=== PATIENT | female | born 1955 | race Caucasian/White ===

== ENCOUNTER 2016-06-19 11:02 | Emergency (ER) | payer MEDICAID ==
[2016-06-19 11:15] VITALS: BP 157/89
--- NOTE | 2016-06-19 12:00 | UC ---
Throat Pain/Nasal Terry HPI - HPI Summary HPI Summary: Increasing burning pain on tip of tongue, roof of mouth, and behind lower teeth starting about 5 days ago. Pt has been without health insurance/health care since 5 months ago, also has not had her meds refilled in that time. Denies recent steroids or abx. - History of Current Complaint Chief Complaint: UCDentalProblem Stated Complaint: THROAT COMPLAINT Time Seen by Provider: 06/19/16 11:34 Hx Obtained From: Patient ?: No Onset/Duration: Gradual Onset, Lasting Days Severity: Moderate Cough: None Associated Signs & Symptoms: Negative: FB Sensation, Drooling, Sinus Discomfort , Nasal Discharge, Fever - Allergies/Home Medications Allergies/Adverse Reactions: Allergies Allergy/AdvReac Type Severity Reaction Status Date / Time Morphine Allergy Itching Verified 06/19/16 11:16 Home Medications: Home Medications Acetaminophen [Tylenol 8 Hour] 1,000 mg PO BEDTIME PRN 06/19/16 [History Confirmed 06/19/16] traMADol TAB* [Ultram*] 50 mg PO Q6HR PRN 06/19/16 [History Confirmed 06/19/16] PMH/Surg Hx/FS Hx/Imm Hx Cardiovascular History Of: Reports: Hypertension - not on meds Psychological History Of: Reports: Depression - Surgical History Surgical History: Yes Surgery Procedure, Year, and Place: X2. BLADDER REPAIR. Rectocele. GB - Family History Known Family History: Positive: Cardiac Disease, Diabetes - Social History Occupation: Unemployed Alcohol Use: None Substance Use Type: None Smoking Status (MU): Never Smoked Tobacco Have You Smoked in the Last Year: No Review of Systems Constitutional: Negative Skin: Negative Eyes: Negative ENT: Other - tongue pain Respiratory: Negative Cardiovascular: Negative Gastrointestinal: Negative Genitourinary: Negative Motor: Negative Neurovascular: Negative Musculoskeletal: Negative Neurological: Negative Psychological: Negative All Other Systems Reviewed And Are Negative: Yes Physical Exam Triage Information Reviewed: Yes Appearance: Well-Appearing, Obese Vital Signs: Initial Vital Signs Temp 96.3 F 06/19/16 11:10 Pulse 83 06/19/16 11:10 Resp 22 06/19/16 11:10 BP 157/89 06/19/16 11:10 Pulse Ox 98 06/19/16 11:10 Vital Signs Reviewed: Yes Eye Exam: Normal Eyes: Positive: Conjunctiva Clear ENT: Positive: Hearing grossly normal, Pharynx normal, TMs normal, Other: - inflamed papillae on tongue, red smooth area on tip of tongue. Negative: Pharyngeal erythema Dental Exam: Normal Neck exam: Normal Neck: Positive: Supple, Nontender, No Lymphadenopathy Respiratory Exam: Normal Respiratory: Positive: Chest non-tender, Lungs clear, Normal breath sounds, No respiratory distress, No accessory muscle use Cardiovascular Exam: Normal Cardiovascular: Positive: RRR, No Murmur Musculoskeletal Exam: Normal Neurological Exam: Normal Psychological Exam: Normal Skin Exam: Normal Throat Pain/Nasal Course/Dx - Differential Dx/Diagnosis Provider Diagnoses: glossitis Discharge - Discharge Plan Condition: Stable Disposition: HOME Prescriptions: Lidocaine 2% VISCOUS* 100 ml TOPICAL Q3HR PRN #1 btl PRN Reason: pain Referrals: Jamil Jung MD [Primary Care Provider] - 5 Days Additional Instructions: As we discussed, the burning pain in your mouth is probably from a vitamin deficiency (most commonly Vitamin B12 and Folate). This is something you will need to investigate with your primary care provider -- you will need some blood work at minimum. You do not have signs of viral, fungal, or bacterial infection today. Start a daily multivitamin, make an appointment with anyone in Dr. Jung's office for next week, and please return here or to the emergency department if you have any fever or sudden worsening in the meantime.
== END 2016-06-19 11:59 | disposition home or self-care (01) ==
LOC: UCEAST 11:02
DX: K14.0 Glossitis (principal); Z88.5 Allergy status to narcotic agent; E66.9 Obesity, unspecified
CPT/HCPCS: 99212; G0463

== ENCOUNTER 2017-10-24 10:50 | Emergency (ER) | payer OTHER ==
[2017-10-24] MEDS ORDERED: Aspirin 81 mg CHEW TAB* 81 MG TAB.CHEW PO ONE (11:24)
[2017-10-24] MEDS ORDERED: Nitroglycerin 2% OINT* 1 GM PAK ONE (11:35)
--- NOTE | 2017-10-24 11:37 | ED ---
HPI Chest Pain - HPI Summary HPI Summary: This patient is a 61 year old F presenting to ED with a chief complaint of left upper CP since 0600 this morning. The pain woke her from sleep and resolved after 2 hours[address] driving to [facility] to get her bloodwork done, the pain started up again. The CC is described as intermittent, radiating into her L jaw and back and as heavy and tight. During the onset of pain she reports it felt like she pulled a muscle and it hurt like hell. The patient rates the pain 6/10 in severity currently and a 10/10 at its worst. Symptoms aggravated by nothing. Symptoms alleviated by nothing. Patient reports slight LAINEZ and nausea. Patient denies dizziness and leg pain. She reports she has not had any prior episodes similar to this. No hx of blood clot. Current vitals include 75 BPM, 95 O2 sat, and BP 132/96. Home Medications Medication Instructions Recorded Confirmed Type Bupropion XL* [Wellbutrin XL *] 150 mg PO DAILY 10/24/17 10/24/17 History Hydroxychloroquine TAB* [Plaquenil 200 mg PO BID 10/24/17 10/24/17 History TAB*] Methylphenidate TAB* [Ritalin TAB*] 5 mg PO BID MDD 10 mg 10/24/17 10/24/17 History Phentermine HCl 15 mg PO BID MDD 30 mg 10/24/17 10/24/17 History Topiramate TAB(*) [Topamax 25 MG 25 mg PO BID 10/24/17 10/24/17 History tab] Triamcinolone 0.5% CREAM(NF) 1 applic TOPICAL BID PRN 10/24/17 10/24/17 History [Triamcinolone 0.5% CREAM*] amLODIPine TAB* [Norvasc 5 mg TAB*] 5 mg PO DAILY 10/24/17 10/24/17 History oxyCODONE/Acetamin 10/325(NF) 1 tab PO Q8HR PRN 10/24/17 10/24/17 History [Percocet 10/325 (NF)] rOPINIRole TAB* [Requip TAB*] 1 mg PO BID 10/24/17 10/24/17 History - History of Current Complaint Chief Complaint: EDChestPainROMI Time Seen by Provider: 10/24/17 11:09 Hx Obtained From: Patient Onset/Duration: Started Hours Ago - 0600 this morning, Still Present Timing: Constant, Lasting Hours - 0600 this morning Initial Severity: Moderate Current Severity: Moderate Pain Intensity: 6 Pain Scale Used: 0-10 Numeric - 10/10 at its worst Chest Pain Location: Discrete at: - left upper CP Chest Pain Radiates: Yes Chest Pain Radiates To:: Back, Jaw - Left Character: Heaviness, Tightness Aggravating Factor(s): Nothing Alleviating Factor(s): Nothing Associated Signs and Symptoms: Positive: Other: - Patient reports slight LAINEZ and nausea. Patient denies dizziness and leg pain. - Allergy/Home Medications Allergies/Adverse Reactions: Allergies Allergy/AdvReac Type Severity Reaction Status Date / Time gabapentin Allergy Unknown Verified 10/24/17 10:57 Reaction Details morphine Allergy Itching Verified 10/24/17 11:38 Home Medications: Home Medications Bupropion XL* [Wellbutrin XL *] 150 mg PO DAILY 10/24/17 [History Confirmed ] Hydroxychloroquine TAB* [Plaquenil TAB*] 200 mg PO BID 10/24/17 [History Confirmed 10/24/17] Methylphenidate TAB* [Ritalin TAB*] 5 mg PO BID MDD 10 mg 10/24/17 [History Confirmed 10/24/17] Phentermine HCl 15 mg PO BID MDD 30 mg 10/24/17 [History Confirmed 10/24/17] Topiramate TAB(*) [Topamax 25 MG tab] 25 mg PO BID 10/24/17 [History Confirmed 10/24/17] Triamcinolone 0.5% CREAM(NF) [Triamcinolone 0.5% CREAM*] 1 applic TOPICAL BID PRN 10/24/17 [History Confirmed 10/24/17] amLODIPine TAB* [Norvasc 5 mg TAB*] 5 mg PO DAILY 10/24/17 [History Confirmed ] oxyCODONE/Acetamin 10/325(NF) [Percocet 10/325 (NF)] 1 tab PO Q8HR PRN 10/24/17 [History Confirmed 10/24/17] rOPINIRole TAB* [Requip TAB*] 1 mg PO BID 10/24/17 [History Confirmed 10/24/17] PMH/Surg Hx/FS Hx/Imm Hx Cardiovascular History: Reports: Hx Hypertension - not on meds Musculoskeletal History: Reports: Hx Scoliosis Psychiatric History: Reports: Hx Depression - Surgical History Surgery Procedure, Year, and Place: X2. BLADDER REPAIR. Rectocele. GB Infectious Disease History: No Infectious Disease History: Denies: Hx Clostridium Difficile, Hx Hepatitis, Hx Human Immunodeficiency Virus (HIV), Hx of Known/Suspected MRSA, Hx Shingles, Hx Tuberculosis, Hx Known/ Suspected VRE, Hx Known/Suspected VRSA, History Other Infectious Disease, Traveled Outside the [place] in Last 30 Days - Family History Known Family History: Positive: Cardiac Disease, Diabetes, Other Family History: father quadruple bypass (age 52) - Social History Alcohol Use: None Substance Use Type: Reports: None Smoking Status (MU): Never Smoked Tobacco Have You Smoked in the Last Year: No Review of Systems Positive: Chest Pain - left upper chest pain, constant, radiating to L jaw and back Positive: Other - denies leg pain Neurological: Other - denies dizziness Positive: Headache - slight LAINEZ All Other Systems Reviewed And Are Negative: Yes Physical Exam - Summary Physical Exam Summary: Appearance: Well-appearing, moderate pain distress, well-nourished Skin: Warm, color reflects adequate perfusion, dry Head: Normal Head/Face inspection, atraumatic Eyes: Conjunctiva clear ENT: Normal inspection Neck: Supple, no nodes, no JVD Respiratory: Lungs clear, normal breath sounds, no respiratory distress Cardio: RRR, No murmur, pulses normal, brisk capillary refill Abdomen: Soft, nontender Bowel sounds: Present Musculoskeletal: Strength Intact/ROM intact, no calf tenderness, no edema. Psychological: Normal Neuro: Alert, muscle tone normal, no focal deficit Triage Information Reviewed: Yes Vital Signs On Initial Exam: Initial Vitals Temp Pulse Resp BP Pulse Ox 98.2 F 80 20 170/98 96 10/24/17 10:56 10/24/17 10:56 10/24/17 10:56 10/24/17 10:56 10/24/17 10:56 Vital Signs Reviewed: Yes Diagnostics - Vital Signs Vital Signs Temp Pulse Resp BP Pulse Ox 10/24/17 11:12 72 18 132/96 97 10/24/17 11:05 78 97 10/24/17 10:56 98.2 F 80 20 170/98 96 - Laboratory Result Diagrams: 10/24/17 14:39 10/24/17 12:41 Lab Statement: Any lab studies that have been ordered have been reviewed, and results considered in the medical decision making process. - Radiology CXR Radiology Interpretation Completed By: Radiologist - NO ACTIVE CARDIOPULMONARY DISEASE IS NOTED. ED physician has reviewed this radiology report. - EKG 1056 Cardiac Rate: NL - 68 BPM EKG Rhythm: Sinus Rhythm ST Segment: Non-Specific Ectopy: None EKG Interpretation: An EKG at 1056 reveals nml AV/IV CT, nml QTc, and nml axis. Re-Evaluation - Re-Evaluation First Eval Re-Evaluation Time: 13:35 Comment: The patient reports shes got a wicked LAINEZ. Will give her IV hydration and toradol for pain. Took the nitro paste off. Second Eval Re-Evaluation Time: 16:20 Comment: The patient has no CP. Discussed discharge plan with the patient. She understands and agrees. Chest Pain Course/Dx - Course Assessment/Plan: CXR reveals NO ACTIVE CARDIOPULMONARY DISEASE IS NOTED. In the ED course, the patient was given ASA. Allergies noted. High blood pressure noted. Pt medications reviewed this visit. The patient will be discharged. She is agreeable with this plan. - Chest Pain Differential Diagnosis/HQI/PQRI: Other: - elevated blood pressure under poor control, chest pain - Diagnoses Provider Diagnoses: Elevated blood pressure reading with diagnosis of hypertension, Chest pain Discharge - Sign-Out/Discharge Documenting (check all that apply): Patient Departure - Discharge Plan Condition: Stable Disposition: HOME Patient Education Materials: Chest Pain (ED) Referrals: Jamil Jung MD [Primary Care Provider] - 2 Days Additional Instructions: We have given you a copy of your labs and xray and EKG done today. We do not think that your chest pain was caused by your heart today. RETURN TO THE EMERGENCY DEPARTMENT FOR CHANGING OR WORSENING SYMPTOMS
[2017-10-24] MEDS ORDERED: Nitroglycerin 2% OINT* 1 GM PAK TOPICAL ONE (11:45)
--- NOTE | 2017-10-24 12:22 | RAD ---
Indication: Chest pain. Single frontal view of the chest performed at 1210 hours was reviewed. No prior study is available for comparison. No mediastinal shift is noted. Heart is of normal size and configuration. Lung sharma appear clear. Marked dextroscoliosis of the thoracic spine is noted. IMPRESSION: NO ACTIVE CARDIOPULMONARY DISEASE IS NOTED.
[2017-10-24 13:02] LABS: INR 0.83 (0.77-1.02)
[2017-10-24 13:13] LABS: EGFR Non-African American 53.5 (>60)
[2017-10-24] MEDS ORDERED: Ketorolac INJ* 30 MG/ML 1 ML VIAL IV PUSH ONE (13:46)
[2017-10-24] MEDS: NS 0.9% 1000 ML* 2,000 ML IV SCH ×2 (13:54→13:55)
[2017-10-24 14:50] LABS: ABS Basophils 0 10^3/ul (0-0.2); ABS Eosinophils 0.1 10^3/ul (0-0.6); ABS Monocytes 0.5 10^3/ul (0-0.8); ABS Neutrophils 4.3 10^3/ul (1.5-7.7); ABS Nucleated RBC 0 10^3/ul; Eosinophil % 1.2 % (0-6); Hematocrit 44 % (35-47); Hemoglobin 15.1 g/dl (12.0-16.0); Lymphocyte % 28.3 % (25-47); Mean Corpuscular HGB Conc 34 g/dl (31-36); Mean Corpuscular Hemoglobin 31 pg (27-31); Mean Corpuscular Volume 90 fL (80-97); Mean Platelet Volume 7.6 um3 (7.4-10.4); Nucleated Red Blood Cells % 0.1; Platelet Count 220 10^3/ul (150-450); Red Blood Count 4.93 10^6/ul (4.00-5.40); Red Cell Distribution Width 13 % (10.5-15); White Blood Count 6.9 10^3/ul (3.5-10.8)
[2017-10-24 16:30] VITALS: BP 135/79
== END 2017-10-24 16:30 | disposition home or self-care (01) ==
LOC: ED 10:50
DX: R07.9 Chest pain, unspecified (principal); R03.0 Elevated blood-pressure reading, without diagnosis of hypertension; Z88.5 Allergy status to narcotic agent; Z88.8 Allergy status to other drugs, medicaments and biological substances
CPT/HCPCS: 36415; 71045; 80053; 82550; 82553; 83605; 83735; 83880; 84484; 85025; 85379; 85610; 85652; 85730; 86141; 93005; 96374; 99283; A9270-GY; J1885

== ENCOUNTER 2018-03-21 08:56 | Day surgery (SDC) | payer OTHER ==
[~2018-03-21 08:56] MED LIST: Acetaminophen TAB* 325 MG PO PRN; Buffered Lidocaine 0.9% SYRIN* 5 ML/SYR SYRINGE INTRADERM ONE
[2018-03-21] MEDS ORDERED: Midazolam* 1 MG/ML 2 ML VIAL (2 MG) ONE ×2 (10:37→11:04)
[2018-03-21] MEDS ORDERED: fentaNYL* 50 MCG/ML 2 ML VIAL (100 MCG VIAL) ONE (10:38)
[2018-03-21] MEDS ORDERED: Tetracaine 0.5% OPTH.SOL 4 ML* 1 DROP BTL ONE (11:14)
[2018-03-21] MEDS ORDERED: Neomycin/Polymy/Dex OPHTH.OIN* 3.5 GM ONE (11:14)
[2018-03-21] MEDS ORDERED: Phenylephrine 2.5% OPTH.SOL* 2 ML BTL ONE (11:14)
[2018-03-21] MEDS ORDERED: Lidocaine 1%* 5 ML VIAL ONE (11:14)
[2018-03-21] MEDS ORDERED: Cyclopentolate 1% OPTH.SOL* 2 ML BTL ONE (11:14)
[2018-03-21] MEDS ORDERED: Tropicamide 1% OPTH.SOL* BTL ONE (11:14)
[2018-03-21] MEDS ORDERED: Ketorolac 0.5% OPHTH (NF) 0.5 % 5 ML BTL ONE (11:14)
[2018-03-21 11:26] VITALS: BP 142/85
--- NOTE | 2018-03-21 15:52 | OP ---
DATE OF OPERATION: 03/21/18 [facility] DATE OF : 51 SURGEON: Dr. Dave Enriquez. MARKETING SPECIALIST: None. ANESTHESIA: Topical with intravenous sedation. PRE-OP DIAGNOSIS: Cataract, right eye. POST-OP DIAGNOSIS: Cataract, right eye. OPERATIVE PROCEDURE: Phacoemulsification and cataract extraction with posterior chamber intraocular lens implant, right eye. COMPLICATIONS: None. BLOOD LOSS: None. DESCRIPTION OF PROCEDURE: The patient was brought to the operating room and received a small amount of intravenous sedation. A drop of Tetracaine was placed in her right eye. She was prepped and draped in the usual sterile fashion for ophthalmic surgery and attention was directed to the right eye where a speculum was placed. A paracentesis was created at the 11 o'clock position and 0.1 cc of 1 percent preservative-free Lidocaine was injected into the anterior chamber followed by DisCoVisc. The eye was digitally stabilized while a 2.75 mm keratome was used to create a triplanar clear corneal incision at the 9 o'clock position. A continuous curvilinear capsulorrhexis was created with a cystotome and Utrata forceps. BSS on a cannula was used to hydrodissect the lens from the capsule. Phacoemulsification was performed in a divide-and- conquer technique to create four fragments which were removed. Residual cortical material was removed with irrigation and aspiration. DisCoVisc was used to inflate the capsular bag and an AU00T0 17.5 diopter lens was folded and inserted into the capsular bag. DisCoVisc was removed using irrigation and aspiration. BSS on a cannula was used to hydrate the corneal stroma and seal the wound. At the end of the case the pupil was round and the lens was centered. The eye was of normal pressure and the wound was water tight. The speculum was removed and topical Maxitrol ointment was placed on the surface of the eye. The eye was closed, patched and shielded and the patient was sent to the recovery room in stable condition with post operative instructions and follow-up appointment given. [id number]/CPS #: [id number] DOUG
== END 2018-03-21 11:34 | disposition home or self-care (01) ==
LOC: OREAST 08:56
PROVIDERS: ATTEND Ophthalmology
DX: Z01.818 Encounter for other preprocedural examination (principal); H25.11 Age-related nuclear cataract, right eye
CPT/HCPCS: A9270-GY; J2250; J3010; V2632

== ENCOUNTER 2018-03-28 10:35 | Day surgery (SDC) | payer OTHER ==
[2018-03-28] MEDS ORDERED: fentaNYL* 50 MCG/ML 2 ML VIAL (100 MCG VIAL) ONE (12:07)
[2018-03-28] MEDS ORDERED: Midazolam* 1 MG/ML 2 ML VIAL (2 MG) ONE (12:07)
[2018-03-28 13:07] VITALS: BP 129/86
[2018-03-28] MEDS ORDERED: Cyclopentolate 1% OPTH.SOL* 2 ML BTL ONE (15:02)
[2018-03-28] MEDS ORDERED: Lidocaine 1%* 5 ML VIAL ONE (15:02)
[2018-03-28] MEDS ORDERED: Phenylephrine 2.5% OPTH.SOL* 2 ML BTL ONE (15:02)
[2018-03-28] MEDS ORDERED: Tropicamide 1% OPTH.SOL* BTL ONE (15:03)
[2018-03-28] MEDS ORDERED: Ketorolac 0.5% OPHTH (NF) 0.5 % 5 ML BTL ONE (15:03)
[2018-03-28] MEDS ORDERED: Neomycin/Polymy/Dex OPHTH.OIN* 3.5 GM ONE (15:03)
[2018-03-28] MEDS ORDERED: Tetracaine 0.5% OPTH.SOL 4 ML* 1 DROP BTL ONE (15:03)
--- NOTE | 2018-03-28 21:17 | OP ---
DATE OF OPERATION: 03/28/18 [facility] DATE OF : 51 SURGEON: Dr. Dave Enriquez. WAX BLENDER: None. ANESTHESIA: Topical with intravenous sedation. PRE-OP DIAGNOSIS: Cataract, left eye. POST-OP DIAGNOSIS: Cataract, left eye. OPERATIVE PROCEDURE: Phacoemulsification and cataract extraction with posterior chamber intraocular lens implant, left eye. COMPLICATIONS: None. BLOOD LOSS: None. DESCRIPTION OF PROCEDURE: The patient was brought to the operating room and received a small amount of intravenous sedation. A drop of Tetracaine was placed in her left eye. She was prepped and draped in the usual sterile fashion for ophthalmic surgery and attention was directed to the left eye where a speculum was placed. A paracentesis was created at the 5 o'clock position and 0.1 cc of 1 percent preservative-free Lidocaine was injected into the anterior chamber followed by DisCoVisc. The eye was digitally stabilized while a 2.75 mm keratome was used to create a triplanar clear corneal incision at the 3 o'clock position. A continuous curvilinear capsulorrhexis was created with a cystotome and Utrata forceps. BSS on a cannula was used to hydrodissect the lens from the capsule. Phacoemulsification was performed in a divide-and- conquer technique to create four fragments which were removed. Residual cortical material was removed with irrigation and aspiration. DisCoVisc was used to inflate the capsular bag and an AU00T0 17.5 diopter lens was folded and inserted into the capsular bag. DisCoVisc was removed using irrigation and aspiration. BSS on a cannula was used to hydrate the corneal stroma and seal the wound. At the end of the case the pupil was round and the lens was centered. The eye was of normal pressure and the wound was water tight. The speculum was removed and topical Maxitrol ointment was placed on the surface of the eye. The eye was closed, patched and shielded and the patient was sent to the recovery room in stable condition with post operative instructions and follow-up appointment given. [id number]/CPS #: [id number] DOUG
== END 2018-03-28 13:18 | disposition home or self-care (01) ==
LOC: OREAST 10:35
PROVIDERS: ATTEND Ophthalmology
DX: H25.12 Age-related nuclear cataract, left eye (principal); M19.90 Unspecified osteoarthritis, unspecified site; I25.10 Atherosclerotic heart disease of native coronary artery without angina pectoris; K21.9 Gastro-esophageal reflux disease without esophagitis; F41.8 Other specified anxiety disorders; Z68.32 Body mass index [BMI] 32.0-32.9, adult; G43.909 Migraine, unspecified, not intractable, without status migrainosus
CPT/HCPCS: A9270-GY; J2250; J3010; V2632

== ENCOUNTER 2018-04-11 09:06 | Emergency (ER) | payer OTHER ==
--- OUTSIDE RECORDS SUMMARY | 2018-04-11 09:11 | XMS REPORT | Continuity of Care Document ---
:1955 External Reference #:[id number] Author Name Dave Enriquez M.D. Address [address] [place] [address] Care Team Providers Name Role Phone Fortino Mackay MD Care Team Information Senior Label Specialist Unavailable Jamil Jung MD Primary Care Physician Unavailable Payers Type Date Identification Numbers Payment Provider Subscriber Policy Number: [id number] [facility] Jenny Langston PayID: [id number] [address] [place] [address] Advance Directives Description No Information Available Problems Description No Information Family History Date Family Member(s) Problem(s) Comments General Heart Disease General Diabetes General Cancer Social History Type Date Description Comments Sex Unknown ETOH Use Denies alcohol use Tobacco Use Start: Unknown Patient has never smoked Smoking Status Reviewed: 03/22/18 Patient has never smoked Allergies, Adverse Reactions, Alerts Date Description Reaction Status Severity Comments 09/02/2016 Gabapentin Active 09/02/2016 Morphine Active Medications Medication Date Status Form Strength Qnty SIG Indications Ordering Provider Ciprofloxacin HCL 12/10 Active Solution 0.3% 5ml instill 1 drop Zoe, right M.D. eye four times a day, start the morning of surgery Ciprofloxacin HCL 12/10 Active Solution 0.3% 5ml instill 1 drop Zoe, in left M.D. eye four times a day, start the morning of surgery Ketorolac 03/13 Active Solution 0.5% 5ml 1 drops Dave Tromethamine /2017 right Enriquez, eye M.D. twice a day Ketorolac 03/13 Active Solution 0.5% 5ml 1 drops Dave Tromethamine left eye Enriquez, twice a M.D. day Pred Forte 12/ Active Suspension 1% 10ml 1 drops Dave right Enriquez, eye four M.D. times a day Pred Forte 12 Active Suspension 1% 10ml 1 drops left eye Enriquez, four M.D. times a day Bupropion HCL ER Active Tablets ER 150mg 1 by Unknown (SR) / 12HR mouth every day Hydroxychloroquine Active Tablets 200mg 180ta take one Thompson, Sulfate bs tablet Fortino by mouth twice a day Oxycodone-Acetamino Active Tablets 10-325mg take 1 Unknown phen tablet by mouth every 6 hours as needed for pain Phentermine HCL Active Capsules 15mg 1 by Unknown /0000 mouth bid Ropinirole HCL Active Tablets 1mg take one Unknown 0000 tablet twice daily Topiramate Active Tablets 100mg twice Unknown daily Celecoxib Active Capsules 100mg 100mg by Unknown / mouth once daily Amlodipine Besylate Active Tablets 5mg 1 by Unknown /0000 mouth every day Vigamox 03/13 Hx Solution 0.5% 3ml 1 drop right Enriquez, - eye four M.D. 03/20 times day, start gtts the morning of surgery Vigamox 03/13 Hx Solution 0.5% 3ml 1 drop left eye Zoe, - four M.D. 03/20 times day, start gtts the morning of surgery Immunizations Description No Information Available Vital Signs Date Vital Result Comment 03/22/2018 9:13am Intraocular Pressure Right Eye 17 mmHg 03/06/2018 9:14am Intraocular Pressure Right Eye 15 mmHg Intraocular Pressure Left Eye 15 mmHg 01/31/2018 3:38pm Intraocular Pressure Right Eye 15 mmHg Intraocular Pressure Left Eye 15 mmHg 11/03/2016 10:59am Intraocular Pressure Right Eye 16 mmHg Intraocular Pressure Left Eye 16 mmHg Results Test Date Facility Test Result H/L Range Note Laboratory test 09/22/2016 N2N/CCD Import Anti-Nuclear 0.2 U 1 finding Antibody C Reactive Protein 2.25 mg/L < 5.00 Creatine Kinase(CK) 40 U/L 10-223 2 TSH (Thyroid Stim Horm) 1.43 mcIU/mL 0.34-5.60 Vitamin D, 1,25 Dihydroxy 75 pg/mL 18-78 3 Vitamin B12 And Folate 09/22/2016 N2N/CCD Import Vitamin B12 497 pg/mL 180-914 4 Serum 1 REFERENCE VALUE <=1.0 (Negative) 2 Acute inflammation: >10.00 3 ADDITIONAL INFORMATION This test was developed and its performance characteristics determined by [facility] in a manner consistent with CLIA requirements. This test has not been cleared or approved by the U.S. Food and Drug Administration. Test Performed by: [facility] - [address] [address] 4 Normal Range 180 to 914 Indeterminate Range 145 to 180 Deficient Range <145 Procedures Date Code Description Status 03/06/2018 75017 Ophthalmic Biometry By Partial Coherence Interferometry Completed W/Intra 03/06/2018 23274 Eye Exam Est Intermediate Completed 01/31/2018 78286 Fundus Photography W/Interpretation & Report Completed 01/31/2018 15810 Eye Exam Est Intermediate Completed 07/01/2017 83004 Oct Retina Completed 07/01/2017 31619 Visual Field Exam Extended, Unilateral Or Bilateral Completed 07/01/2017 09175 Eye Exam Est Intermediate Completed 11/03/2016 84335 Fundus Photography W/Interpretation & Report Completed 11/03/2016 59442 Refraction Completed 11/03/2016 68961 Eye Exam New Comprehensive Completed Encounters Description No Information Available Plan of Treatment Future Appointment(s):05/05/2018 9:45 am - Mynor Boone [facility] [id number] 9:15 am - Mynor Boone [facility] Cgepsm0303/29/2018 9:15 am - Dave Enriquez M.D. at [facility] Ekqvvt4703/28/2018 8:25 am - Dave Enriquez M.D. [facility] Jvawbp8503/22/2018 - Dave Enriquez M.D.Z48.89 Encounter for other specified surgical aftercareComments:The patient was seen post-operatively one day following surgery. The patient was advised that the eye tolerated the surgery well without complications. Patient was given eye drop schedule and implant card.The patient was told to wear an eye shield QHS for one week and sunglasses daily. The patient was also advised to contact us immediately if new symptoms or visual changes are noted such as pain, worsening redness, flashes, floaters or decrease in vision.Follow up:The patient is to return in one week to follow up after cataract surgery and sooner if needed.
--- OUTSIDE RECORDS SUMMARY | 2018-04-11 09:11 | XMS REPORT | Continuity of Care Document ---
:1955 External Reference #:[id number] Author Name Dave Enriquez M.D. Address [address] [place] [address] Care Team Providers Name Role Phone Fortino Mackay MD Care Team Information Optic Fibre Drawer Unavailable Jamil Jung MD Primary Care Physician Unavailable Payers Type Date Identification Numbers Payment Provider Subscriber Policy Number: [id number] [facility] Jenny Langston PayID: [id number] [address] [place] [address] Advance Directives Description No Information Available Problems Description No Information Family History Date Family Member(s) Problem(s) Comments General Heart Disease General Diabetes General Cancer Social History Type Date Description Comments Sex Unknown ETOH Use Denies alcohol use Tobacco Use Start: Unknown Patient has never smoked Smoking Status Reviewed: 03/29/18 Patient has never smoked Allergies, Adverse Reactions, [...] Available Vital Signs Date Vital Result Comment 03/29/2018 9:27am Intraocular Pressure Right Eye 16 mmHg Intraocular Pressure Left Eye 16 mmHg 03/22/2018 9:13am Intraocular Pressure Right Eye 17 [...] developed and its performance characteristics determined by [facility] in a manner consistent with CLIA requirements. This test has not been cleared or approved by the U.S. Food and Drug Administration. Test Performed by: [facility] - [address] [address] 4 Normal Range 180 to 914 Indeterminate Range 145 to 180 Deficient Range <145 Procedures Date Code Description Status 03/21/2018 31973 Extracapsular Cataract Extraction W/Intraocular Lens Completed 03/06/2018 71540 Ophthalmic Biometry By Partial Coherence Interferometry Completed W/Intra 03/06/2018 48693 Eye Exam Est Intermediate Completed 01/31/2018 50126 Fundus Photography W/Interpretation & Report Completed 01/31/2018 22635 Eye Exam Est Intermediate Completed 07/01/2017 50996 Oct Retina Completed 07/01/2017 45803 Visual Field Exam Extended, Unilateral Or Bilateral Completed 07/01/2017 01008 Eye Exam Est Intermediate Completed 11/03/2016 95160 Fundus Photography W/Interpretation & Report Completed 11/03/2016 72298 Refraction Completed 11/03/2016 23609 Eye Exam New Comprehensive Completed Encounters Description No Information Available Plan of Treatment Future Appointment(s):05/05/2018 9:45 am - Mynor Boone, OD at [facility] [id number] 9:15 am - Mynor Boone, OD at [facility] [id number]/29/2018 - Dave Enriquez M.D.[id number] Encounter for other [...] or visual changes are noted such as pain , worsening redness, flashes, floaters or decrease in vision.Follow up:The patient is to return in one week to follow up after cataract surgery and sooner if needed.
--- OUTSIDE RECORDS SUMMARY | 2018-04-11 09:11 | XMS REPORT | Continuity of Care Document ---
:1955 External Reference #:[id number] Author Name Mynor Boone, OD Address [address] [place] [address] Care Team Providers Name Role Phone Fortino Mackay MD Care Team Information Event Producer Unavailable Jamil Jung MD Primary Care Physician Unavailable Payers Type Date Identification Numbers Payment Provider Subscriber Policy Number: [id number] [facility] Jenny Langston PayID: [id number] [address] [place] [id number] Advance Directives Description No Information Available Problems Description No Information Family History Date Family Member(s) Problem(s) Comments General Heart Disease General Diabetes General Cancer Social History Type Date Description Comments Sex Unknown ETOH Use Denies alcohol use Tobacco Use Start: Unknown Patient has never smoked Smoking Status Reviewed: 04/05/18 Patient has never smoked Allergies, Adverse Reactions, Alerts Date Description Reaction Status Severity Comments 09/02/2016 Gabapentin Active 09/02/2016 Morphine Active Medications Medication Date Status Form Strength Qnty SIG Indications Ordering Provider Ketorolac 03/13 Active Solution 0.5% 5ml 1 drops Dave Tromethalisa right Enriquez, eye M.D. twice a day Pred Forte 03/13 Active Suspension 1% 10ml 1 drops Peter /2017 left eye Enriquez, four M.D. times a day Bupropion HCL ER 00 Active Tablets ER 150mg 1 by Unknown (SR) /0000 12HR mouth every day Hydroxychloroquine Active Tablets 200mg 180ta take one Thompson, Sulfate /0000 bs tablet Fortino by flavia PARR twice a day Oxycodone-Acetamino Active Tablets 10-325mg take 1 Unknown phen /0000 tablet by mouth every 6 hours as needed for pain Phentermine HCL Active Capsules 15mg 1 by Unknown /0000 mouth bid Ropinirole HCL Active Tablets 1mg take one Unknown /0000 tablet twice daily Topiramate Active Tablets 100mg twice Unknown /0000 daily Celecoxib Active Capsules 100mg 100mg by Unknown /0000 mouth once daily Amlodipine Besylate Active Tablets 5mg 1 by Unknown /0000 mouth every day Ciprofloxacin HCL 03/20 Hx Solution 0.3% 5ml instill 1 drop Enriquez, - right M.D. 04/05 eye times a day, start the morning of surgery Ciprofloxacin HCL 03/20 Hx Solution 0.3% 5ml instill 1 drop Enriquez, - in left M.D. 04/05 eye times a day, start the morning of surgery Vigamox 03/13 Hx Solution 0.5% 3ml 1 drop right Enriquez, - eye four M.D. 03/20 times day, start gtts the morning of surgery Vigamox 03/13 Hx Solution 0.5% 3ml 1 drop left eye Enriquez, - four M.D. 03/20 times day, start gtts the morning of surgery Ketorolac 03/13 Hx Solution 0.5% 5ml 1 drops Dave Tromethamine /2017 left eye Enriquez, - twice a M.D. Pred Forte 03/13 Hx Suspension 1% 10ml 1 drops right Enriquez, - eye four M.D. 04/05 times day Immunizations Description No Information Available Vital Signs Date Vital Result Comment 04/05/2018 9:23am Intraocular Pressure Right Eye 15 mmHg Intraocular Pressure Left Eye 15 mmHg 03/29/2018 9:27am Intraocular Pressure Right Eye 16 [...] developed and its performance characteristics determined by [facility] in a manner consistent with CLIA requirements. This test has not been cleared or approved by the U.S. Food and Drug Administration. Test Performed by: [facility] - [address] [address] 4 Normal Range 180 to 914 Indeterminate Range 145 to 180 Deficient Range <145 Procedures Date Code Description Status 03/21/2018 40791 Extracapsular Cataract Extraction W/Intraocular Lens Completed 03/06/2018 78135 Ophthalmic Biometry By Partial Coherence Interferometry Completed W/Intra 03/06/2018 09115 Eye Exam Est Intermediate Completed 01/31/2018 54617 Fundus Photography W/Interpretation & Report Completed 01/31/2018 50567 Eye Exam Est Intermediate Completed 07/01/2017 26910 Oct Retina Completed 07/01/2017 06972 Visual Field Exam Extended, Unilateral Or Bilateral Completed 07/01/2017 21174 Eye Exam Est Intermediate Completed 11/03/2016 56618 Fundus Photography W/Interpretation & Report Completed 11/03/2016 61905 Refraction Completed 11/03/2016 25611 Eye Exam New Comprehensive Completed Encounters Description No Information Available Plan of Treatment Future Appointment(s):05/05/2018 9:45 am - Mynor Boone, OD at [facility] [id number] - Mynor Boone, ODZ96.1 Presence of intraocular lensFollow up:as scheduled 1 month post op refraction, sooner PRN
[2018-04-11 09:17] VITALS: BP 155/91
--- NOTE | 2018-04-11 10:30 | UC ---
Throat Pain/Nasal Terry HPI - HPI Summary HPI Summary: 3 days of sore throat and pain with swallowing. Has had intermittent low-grade temperature up to 100.1. Feels fatigued and achy all over. No flu shot yet this season. - History of Current Complaint Chief Complaint: UCRespiratory Stated Complaint: SORE THROAT, EAR COMPLAINT Time Seen by Provider: 04/11/18 09:21 Hx Obtained From: Patient Onset/Duration: Gradual Onset, Lasting Days, Still Present Severity: Moderate Pain Intensity: 7 Pain Scale Used: 0-10 Numeric Cough: Nonproductive Associated Signs & Symptoms: Positive: Nasal Discharge, Fever - Allergies/Home Medications Allergies/Adverse Reactions: Allergies Allergy/AdvReac Type Severity Reaction Status Date / Time gabapentin Allergy Severe disorientio Verified 03/28/18 11:06 n morphine Allergy Severe Itching Verified 03/28/18 11:06 PMH/Surg Hx/FS Hx/Imm Hx Endocrine History: Dyslipidemia Cardiovascular History: Hypertension - Surgical History Surgical History: Yes Surgery Procedure, Year, and Place: X2. BLADDER REPAIR. Rectocele. GB - Family History Known Family History: Positive: Cardiac Disease, Diabetes, Other Family History: father quadruple bypass (age 52) - Social History Alcohol Use: None Substance Use Type: Prescribed Substance Use Comment - Amount & Last Used: oxycodone Smoking Status (MU): Never Smoked Tobacco Have You Smoked in the Last Year: No Review of Systems All Other Systems Reviewed And Are Negative: Yes Constitutional: Positive: Fever, Fatigue ENT: Positive: Sore Throat, Nasal Discharge Respiratory: Positive: Cough Cardiovascular: Positive: Negative Gastrointestinal: Positive: Negative Musculoskeletal: Positive: Arthralgia, Myalgia Neurological: Positive: Headache Physical Exam Triage Information Reviewed: Yes Appearance: No Pain Distress, Well-Nourished, Ill-Appearing - APPEARS FATIGUED Vital Signs: Initial Vital Signs Temp 98.6 F 04/11/18 09:10 Pulse 86 04/11/18 09:10 Resp 16 04/11/18 09:10 BP 155/91 04/11/18 09:10 Pulse Ox 100 04/11/18 09:10 Laboratory Tests 04/11/18 04/11/18 09:24 10:02 Influenza A (Rapid) Negative Influenza B (Rapid) Negative Group A Strep Rapid Negative Eyes: Positive: Conjunctiva Clear ENT: Positive: Hearing grossly normal, Pharynx normal, TMs normal Neck: Positive: Supple, Nontender, No Lymphadenopathy Respiratory Exam: Normal Cardiovascular Exam: Normal Abdomen Description: Positive: Soft Musculoskeletal: Positive: No Edema Neurological: Positive: Alert Psychological: Positive: Age Appropriate Behavior Skin: Negative: Rashes Throat Pain/Nasal Course/Dx - Differential Dx/Diagnosis Provider Diagnosis: Acute pharyngitis Discharge - Sign-Out/Discharge Documenting (check all that apply): Patient Departure All imaging exams completed and their final reports reviewed: No Studies - Discharge Plan Condition: Stable Disposition: HOME Prescriptions: Magic Mouth Was-PEDRO/MAAL/LIDO* 5 - 10 ml SWISH SWAL QID PRN #150 ml PRN Reason: Sore Throat Patient Education Materials: Pharyngitis (ED) Referrals: Jamil Jung MD [Primary Care Provider] - (KEEP YOUR APPT NEXT WEEK) Additional Instructions: STREP TEST NEGATIVE. FLU SWAB NEGATIVE. YOUR SYMPTOMS ARE LIKELY VIRALLY MEDIATED AND SHOULD RESOLVE ON THEIR OWN WITH TIME. NO INDICATION FOR ANTIBIOTICS AT PRESENT. REST, HYDRATE, OTC CHLORASEPTIC OR CEPACOL LOZENGES AND/ OR IBUPROFEN FOR SORE THROAT NEEDED WILL ALSO GIVE MAGIC MOUTHWASH TO USE NEEDED. SEEK FOLLOW-UP IF YOU ARE NOT IMPROVING OVER THE NEXT 1-2 WEEKS. - Billing Disposition and Condition Condition: STABLE Disposition: Home
== END 2018-04-11 10:30 | disposition home or self-care (01) ==
LOC: UCEAST 09:06
DX: J02.9 Acute pharyngitis, unspecified (principal); I10 Essential (primary) hypertension; Z88.8 Allergy status to other drugs, medicaments and biological substances; Z88.5 Allergy status to narcotic agent
CPT/HCPCS: 87651; 99212; G0463

== ENCOUNTER 2018-07-08 14:12 | Emergency (ER) | payer OTHER ==
[2018-07-08 14:33] VITALS: BP 141/73
[2018-07-08] MEDS ORDERED: Albuterol 2.5 MG/3 ML NEB.SOL* (0.083%) INH ONE (14:44)
--- NOTE | 2018-07-08 14:45 | UC ---
UC General HPI - HPI Summary HPI Summary: per triage, Nonproductive cough for nine days; saw PCP five days ago for routine visit and he wasn't concerned. Cough has been worsening over the past three to four days. Cough has become more frequent, shortness of breath, and exertional fatigue/weakness for two to three days. Fever (tmax 102), chest " just feels tight", and sweats for two days. Cough is persistent during triage. Patient can speak in full sentences with minimal shortness of breath. - History of Current Complaint Chief Complaint: UCRespiratory Stated Complaint: COUGH/CONGESTION Time Seen by Provider: 07/08/18 14:38 Hx Obtained From: Patient Onset/Duration: Gradual Onset Timing: Constant Pain Intensity: 6 Associated Signs & Symptoms: Negative: Chest Pain - Allergy/Home Medications Allergies/Adverse Reactions: Allergies Allergy/AdvReac Type Severity Reaction Status Date / Time gabapentin Allergy Severe disorientio Verified 07/08/18 14:26 n morphine Allergy Severe Itching Verified 07/08/18 14:26 Home Medications: Home Medications DULoxetine DR CAP* [Cymbalta CAP*] 30 mg PO DAILY 07/08/18 [History Confirmed ] Meclizine TAB* [Antivert 12.5 TAB*] 25 mg PO TID PRN 07/08/18 [History Confirmed 07/08/18] PMH/Surg Hx/FS Hx/Imm Hx - Additional Past Medical History Additional PMH: vertigo, scoliosis Cardiovascular History: Hypertension GI/ History: Gastroesophageal Reflux Psychological History: Depression - Surgical History Surgical History: Yes Surgery Procedure, Year, and Place: X2. BLADDER REPAIR. Rectocele. GB - Family History Known Family History: Positive: Cardiac Disease, Diabetes, Other Family History: father quadruple bypass (age 52) - Social History Alcohol Use: None Substance Use Type: Prescribed Substance Use Comment - Amount & Last Used: oxycodone Smoking Status (MU): Never Smoked Tobacco Have You Smoked in the Last Year: No Review of Systems All Other Systems Reviewed And Are Negative: Yes Constitutional: Positive: Fever, Fatigue Respiratory: Positive: Shortness Of Breath, Cough Cardiovascular: Negative: Chest Pain Motor: Positive: Weakness Musculoskeletal: Positive: Arthralgia - hands-chronic Physical Exam Triage Information Reviewed: Yes Appearance: Well-Appearing Vital Signs: Initial Vital Signs Temp 97.3 F 07/08/18 14:22 Pulse 98 07/08/18 14:22 Resp 26 07/08/18 14:22 BP 141/73 07/08/18 14:22 Pulse Ox 95 07/08/18 14:22 Vital Signs Reviewed: Yes Eyes: Positive: Conjunctiva Clear ENT: Positive: Normal ENT inspection Neck: Positive: Supple, Nontender, No Lymphadenopathy Respiratory: Positive: No respiratory distress, Decreased breath sounds - RLL, Other: - NPC Cardiovascular: Positive: RRR, No Murmur Abdomen Description: Positive: Nontender, No Organomegaly, Soft Bowel Sounds: Positive: Present Musculoskeletal: Positive: No Edema, Other: - scoliosis Neurological: Positive: Alert Psychological: Positive: Age Appropriate Behavior Skin Exam: Normal Diagnostics - Radiology No standard instances Radiology Interpretation Completed By: Radiologist - CXR IMPRESSION: #. Stigmata of potential chronic obstructive pulmonary disease. #. No acute cardiopulmonary process evident. Re-Evaluation - Re-Evaluation First Eval Re-Evaluation Time: 15:21 Change: Improved - much better aeration with an occasional faint wheeze. pt feels breathing is better. Course/Dx - Differential Dx - Multi-Symptom Differential Diagnoses: Other - no concern for PE. no infiltrate on cxr. no hx copd but ? COPD changes on the cxr thus will tx with an anribiotic. - Diagnoses Provider Diagnosis: Cough, Bronchospasm, acute Discharge - Sign-Out/Discharge Documenting (check all that apply): Patient Departure All imaging exams completed and their final reports reviewed: Yes - Discharge Plan Condition: Stable Disposition: HOME Prescriptions: Albuterol HFA INHALER* [Ventolin HFA Inhaler*] 2 puff INH Q6H #1 mdi Azithromycin TAB* [Zithromax TAB (Z-YIMI) 250 mg #6 tabs] 2 tab PO .TODAY, THEN 1 DAILY #1 yimi predniSONE [Prednisone 20 MG TAB] 40 mg PO DAILY 3 Days #6 tablet Patient Education Materials: Bronchospasm (ED), Acute Cough (ED) Referrals: Jamil Jung MD [Primary Care Provider] - Additional Instructions: FOLLOW UP PRIMARY CARE IN 5-7 DAYS FOR A RECHECK OR SOONER IF WORSE. - Billing Disposition and Condition Condition: STABLE Disposition: Home - Attestation Statements Provider Attestation: I was available for consult. This patient was seen by the MUNIR. The patient was not presented to, seen by, or examined by me. -Edgar
== END 2018-07-08 15:37 | disposition home or self-care (01) ==
LOC: UCCORT 14:12
DX: R05 Cough (principal); J98.01 Acute bronchospasm; M41.9 Scoliosis, unspecified; I10 Essential (primary) hypertension; K21.9 Gastro-esophageal reflux disease without esophagitis; F32.9 Major depressive disorder, single episode, unspecified; R42 Dizziness and giddiness; Z79.899 Other long term (current) drug therapy
CPT/HCPCS: 71046; 99212; G0463

== ENCOUNTER 2018-08-29 09:45 | Day surgery (SDC) | payer OTHER ==
--- NOTE | 2018-08-21 13:48 | HP ---
PREOPERATIVE HISTORY AND PHYSICAL: DATE OF SURGERY/ADMISSION: 08/29/18 DATE OF OFFICE VISIT/ENCOUNTER: 08/16/18 ATTENDING SURGEON: Asia Lee MD* (dictated by JAE Pitts). PROCEDURE: Left thumb carpometacarpal joint arthroplasty, left wrist carpal tunnel release. HISTORY OF PRESENT ILLNESS: This is a 62-year-old female who complains of numbness and tingling in her left hand and bilateral thumb pain, left is worse than right. She has had trouble with these problems for close to 3 years. Symptoms have gradually gotten worse. She has failed conservative treatment including cortisone injections and bracing. She also takes naproxen on a regular basis and is prescribed Percocet for pain control by Dr. Jung. She has elected to proceed with surgical intervention at this time for her left thumb CMC joint arthritis and her left wrist carpal tunnel syndrome. PAST MEDICAL HISTORY: 1. History of vertigo. 2. History of renal insufficiency, followed by Dr. Jung. 3. Hypertension. 4. Anxiety/depression. 5. Osteoarthritis. 6. Back pain. 7. GERD. PAST SURGICAL HISTORY: 1. x2. 2. Hernia repair. 3. Cystocele. The patient denies any anesthesia problems. CURRENT MEDICATIONS: 1. Amitriptyline HCl 25 mg daily. 2. Amlodipine besylate 5 mg daily. 3. Bisoprolol fumarate/hydrochlorothiazide 5/6.25 one tab daily. 4. Bupropion HCl 150 mg daily. 5. Duloxetine HCl 30 mg twice a day. 6. Meclizine HCl 25 mg one tablet twice a day. 7. Omeprazole 20 mg daily. 8. Percocet 10/325 q.6 hours p.r.n. pain. 9. Pennsaid 2% two pumps twice daily as needed for bilateral thumb pain. ALLERGIES: 1. GABAPENTIN causes mental confusion. 2. MORPHINE causes itching. FAMILY MEDICAL HISTORY: Cancer, diabetes, heart disease. 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 She denies tobacco use, recreational drug use, and does not drink alcohol. REVIEW OF SYSTEMS: General: Positive for weight gain secondary to depression. Negative cephalic, cardiovascular, respiratory. GI: Positive for upset stomach. Negative , other musculoskeletal, integumentary, endocrine, neurologic, hematologic symptoms. Infectious Disease: Negative for MRSA, hepatitis C, HIV. PHYSICAL EXAMINATION GENERAL: Well-developed, well-nourished, 62-year-old female, in no acute distress. VITAL SIGNS: Height 5 feet 5-1/4 inch, weight 201 pounds, blood pressure 134/88 , pulse rate 62. HEENT: Normocephalic, atraumatic. Pupils are equal, round and reactive to light and accommodation. Extraocular movements are intact. Neck is supple. No palpable lymph nodes. Throat is clear. PULMONARY: Lungs are clear to auscultation bilaterally. No wheezes, rales, or rhonchi. CARDIOVASCULAR: Regular rate and rhythm. S1, S2. No murmurs, rubs or gallops. No edema. ABDOMEN: Positive bowel sounds, soft, nontender. NEUROLOGIC: Alert and oriented x3. Cranial nerves II through XII are intact. Sensation is intact to light touch. MUSCULOSKELETAL: On exam of her bilateral hands, she has obvious deformity at the base of her thumbs and at the MP joint of her right thumb. She can pose her thumbs across the palm, but motion is limited. She is also limited in abduction. She has decreased sensation in the median nerve distribution in her left hand and weakness with both thumbs in abduction. She has good motion in her fingers and wrist motion is good on both sides. She has a positive grind test at both thumb CMC joints, as well as tenderness to palpation there. IMAGING STUDIES: X-rays AP, lateral, and oblique of the thumbs showed CMC joint arthritis in both thumbs, worse on the left than on the right. IMPRESSION: Bilateral thumb carpometacarpal joint arthritis and left carpal tunnel syndrome. PLAN: The patient is scheduled to undergo a left thumb carpometacarpal joint arthroplasty and a left wrist carpal tunnel release with Dr. Lee on 08/29/18. She will return to the office 10 days postop for followup and suture removal. She has Percocet from another provider that she will use for postoperative pain management. JAE PITTS [id number]/[facility] #: [id number] [facility] HOSPITALMart
[~2018-08-29 09:45] MED LIST changes: -Acetaminophen TAB* 325 MG PO PRN; -Buffered Lidocaine 0.9% SYRIN* 5 ML/SYR SYRINGE INTRADERM ONE; +Buffered Lidocaine 1% SYRIN* 1 ML/SYRINGE INTRADERM ONE; +Bupivacaine 0.5% SDV PF* 30ML VIAL ONE; +Dexamethasone IV* 4 MG/ML 1 ML (4 MG) IV SLOW PU ONE; +DiMENhydriNATE IV* 50 MG/ML VIAL IV PUSH PRN; +Famotidine IV* 10 MG/ML 2 ML (20 mg) IV ONE; +HYDROcodone/ACETAMIN 5-325 MG* 1 TAB PO PRN; +Lactated Ringers 1000 ML Bag* 1,000 ML IV SCH; +Naloxone* 0.4 MG/ML 1 ML VIAL IV PRN; +fentaNYL* 50 MCG/ML 2 ML VIAL (100 MCG VIAL) IV PRN; +methylPREDNISolone ACETATE 80* 80 MG/ML 1 ML VIAL ONE
[2018-08-29] MEDS ORDERED: Famotidine IV* 10 MG/ML 2 ML (20 mg) ONE (09:57)
[2018-08-29] MEDS ORDERED: Dexamethasone IV* 4 MG/ML 1 ML (4 MG) ONE (09:57)
[2018-08-29] MEDS ORDERED: ceFAZolin 2 GM PREMIX in ORs 2 GM/50 ML BAG IVPB ONE (10:01)
[2018-08-29] MEDS ORDERED: fentaNYL* 50 MCG/ML 2 ML VIAL (100 MCG VIAL) ONE ×2 (11:17→12:41)
[2018-08-29] MEDS ORDERED: Midazolam* 1 MG/ML 2 ML VIAL (2 MG) ONE (11:17)
[2018-08-29] MEDS ORDERED: Lidocaine 2% PF * 5 ML VIAL ONE (11:17)
[2018-08-29] MEDS ORDERED: Propofol* 10 MG/ML 20 ML BTL ONE (11:17)
[2018-08-29] MEDS ORDERED: Metoprolol Tartrate IV* 1 MG/ML 5 ML VIAL ONE (11:57)
[2018-08-29] MEDS ORDERED: Ondansetron INJ* 2 MG/ML VIAL ONE (12:02)
[2018-08-29] MEDS ORDERED: oxyCODONE/Acetamin 5/325 MG* TAB ONE (12:56)
[2018-08-29] MEDS: oxyCODONE/Acetamin 5/325 MG* TAB PO PRN ×2 (12:58→12:59)
[2018-08-29 13:43] VITALS: BP 137/66
--- NOTE | 2018-08-29 15:54 | OP ---
DATE OF OPERATION: 08/29/18 - [facility] DATE OF : 51 SURGEON: Asia Lee MD. TEST GRADER: JAE Pitts ANESTHESIA: General. PRE-OP DIAGNOSES: 1. Left thumb carpometacarpal arthritis. 2. Left carpal tunnel syndrome. 3. Right thumb carpometacarpal arthritis POST-OP DIAGNOSES: 1. Left thumb carpometacarpal arthritis. 2. Left carpal tunnel syndrome. 3. Right thumb carpometacarpal arthritis OPERATIVE PROCEDURE: Right thumb CMC injection, left thumb CMC arthroplasty and left carpal tunnel release. ESTIMATED BLOOD LOSS: Zero. TOURNIQUET TIME: Was about 40 minutes. INDICATIONS FOR PROCEDURE: Jenny is a 62-year-old female who has painful arthritis at the base of both thumbs and also numbness and tingling in the median nerve distribution of her left hand. She presents for left carpal tunnel release, left thumb CMC arthroplasty and right thumb CMC injection. DESCRIPTION OF PROCEDURE: The patient was brought to the operating room, was given a general anesthetic, and placed in a supine position on the operating table. A tourniquet was placed around her left forearm, and injection of 80 mg Depo-Medrol and 2 cc of 0.5% plain Marcaine was injected at the right thumb CMC joint. The skin of her left hand and forearm was then prepped and draped in usual sterile fashion. The hand and forearm were exsanguinated and the tourniquet elevated to 250 mmHg. A longitudinal incision was made in the palm in line with the ring finger. We dissected through the subcutaneous tissue down to the transverse carpal ligament. The ligament was divided sharply with a knife and then more proximally with a scissors. The nerve was dissected free from the surrounding tissue and there was an area of moderate compression in the mid portion of the ligament. The wound was irrigated and the skin edges reapproximated with 4-0 nylon suture. Next, an S-shaped incision was made centered at the thumb CMC joint. We dissected through the subcutaneous tissue down to the CMC joint capsule. The radial artery was carefully dissected away from the capsule and retracted by the surgical processor, Flor Vivas, whose assistance was essential for safe completion of the case. The CMC joint capsule was then subperiosteally dissected off of the trapezium. Trapezium was removed in its entirety and sent for pathology. The CMC joint capsule was then secured to the FCR tendon in the base of the wound and this placed the thumb in nice abduction position. The EPB tendon was incised and secured to the APL tendons to take away the extension deformity of the MP joint. The wound was irrigated and the skin edges were reapproximated with 4-0 nylon suture. The wound was dressed with Xeroform, 4x4, Webril, and a thumb spica splint with the metacarpal abducted. The patient tolerated the procedure well and was brought to the recovery room in good condition. [id number]/[facility] #: [id number] DOUG
== END 2018-08-29 13:35 | disposition home or self-care (01) ==
LOC: OREAST 09:45
PROVIDERS: ATTEND Orthopaedic Surgery
DX: M18.12 Unilateral primary osteoarthritis of first carpometacarpal joint, left hand (principal); G56.02 Carpal tunnel syndrome, left upper limb; M18.11 Unilateral primary osteoarthritis of first carpometacarpal joint, right hand; I10 Essential (primary) hypertension; F41.8 Other specified anxiety disorders; K21.9 Gastro-esophageal reflux disease without esophagitis; N28.9 Disorder of kidney and ureter, unspecified
CPT/HCPCS: 88304; 88311; A9270-GY; J0690; J1040; J1100; J2250; J2405; J2704; J3010; J3490